=== PATIENT | male | born 1935 | race Caucasian/White ===

== ENCOUNTER 2017-08-22 09:53 | Observation (INO) | payer MEDICARE ==
[2017-08-21 08:51] VITALS: BMI 41.5
[2017-08-22] MEDS ORDERED: Midazolam HCl 2 mg/2 ml Vial ONE (10:36)
[2017-08-22] MEDS ORDERED: Fentanyl 100 MCG/2 ML VIAL ONE ×2 (10:36→14:20)
[2017-08-22] MEDS ORDERED: Succinylcholine Chloride 20 MG/ML 10 ml SYRINGE FS ONE (10:45)
[2017-08-22] MEDS ORDERED: PROPOFOL 200 MG/20 ML VIAL ONE (10:45)
[2017-08-22] MEDS ORDERED: PHENYLEPHRINE-NS 100 MCG/ML 10 ML SYRINGE ONE (10:45)
[2017-08-22] MEDS ORDERED: Glycopyrrolate 0.2 MG/ML 5 ML SYRINGE ONE (10:45)
[2017-08-22] MEDS ORDERED: Bupivacaine HCl 0.5%/Epinephrine 1:200,000/PF 30 ml Vial ONE (10:59)
[2017-08-22 11:19] LABS: Hemoglobin 10.1 g/dL (14.0-18.0); Mean Corpuscular HGB CONC 32.7 g/dL (32.0-36.0); Mean Corpuscular Hemoglobin 30.5 pg (27.0-31.0); Mean Corpuscular Volume 93.1 fl (80.0-94.0); Mean Platelet Volume 7.2 fL (7.4-10.4); Platelet Count 238 thou/uL (130-400); RBC Distribution Width 14.2 % (11.5-14.5); Red Blood Cell (RBC) Count 3.32 mill/uL (4.70-6.10); White Blood Cell (WBC) Count 6.3 thou/uL (4.8-10.8)
[2017-08-22 11:36] LABS: Anion Gap 9 mmol/L (10-20); BUN (Urea Nitrogen) 39 mg/dL (8.4-25.7); Calc. Creatinine Clearance 64 mL/min (70-130); Calcium 8.5 mg/dL (7.8-10.44); Carbon Dioxide 27 mmol/L (23-31); Chloride 106 mmol/L (98-107); Estimated GFR-MDRD 41; Glucose 97 mg/dL (83-110); Potassium 4.4 mmol/L (3.5-5.1); Sodium 138 mmol/L (136-145)
[2017-08-22] MEDS ORDERED: CEFAZOLIN/Water 2 GM/20 ML SYRINGE ONE (11:41)
[2017-08-22] MEDS ORDERED: Nitroglycerin 2% Ointment 1 INCH/1 GM Packet ONE (12:40)
--- NOTE | 2017-08-22 14:34 | RAD ---
RIGHT HUMERUS INTRAOPERATIVE FLUOROSCOPY: Date: 08/22/17 HISTORY: Arm fracture. FINDINGS/IMPRESSION: Intraoperative fluoroscopy is provided for internal fixation as performed by Dr. Singh. Spot fluor oscopic images show long plate transfixing the distal humerus. POS: DULCE
[2017-08-22] MEDS ORDERED: Ondansetron HCl/PF 4 MG/2 ML Vial IV PRN (14:48)
[2017-08-22] MEDS ORDERED: Bisacodyl 10 MG SUPP PR PRN (14:48)
[2017-08-22] MEDS ORDERED: Acetaminophen 325 MG TAB PO PRN (14:48)
[2017-08-22] MEDS ORDERED: HYDROcodone/Acetaminophen 10/325 mg Tablet PO PRN ×2 (14:48)
[2017-08-22] MEDS ORDERED: Morphine 4 MG/ML VIAL SLOW IVP PRN (14:48)
[2017-08-22] MEDS ORDERED: Milk Of Magnesia 30 ML UDCUP PO PRN (14:48)
[2017-08-22] MEDS ORDERED: Promethazine HCl 25 MG/ML VIAL IM PRN (14:48)
[2017-08-22] MEDS ORDERED: traMADol HCl 50 MG TAB PO PRN ×2 (14:48)
[2017-08-22] MEDS ORDERED: Acetaminophen/Codeine 30-300mg Tablet PO PRN ×2 (14:48)
[2017-08-22] MEDS ORDERED: Fentanyl 100 MCG/2 ML VIAL SLOW IVP PRN (14:48)
--- NOTE | 2017-08-22 16:24 | PDOC.FPRHP ---
- History of Present Illness Chief Complaint: fall History of Present Illness: 82 yo M with PMH of HTN, sCHF, A fib presented for ORIF of left distal humerus fracture after falling at home in the shower. Fell on outstretched left hand. Consulted for medical management. - Allergies/Adverse Reactions Allergies Allergy/AdvReac Type Severity Reaction Status Date / Time No Known Drug Allergies Allergy Verified 08/21/17 08:39 - Home Medications Medication Instructions Recorded Confirmed Type Sertraline HCl 50 mg PO HS 10/10/15 08/22/17 History Carvedilol [Coreg] 3.125 mg PO BID 10/13/15 08/22/17 History Amiodarone [Cordarone] 200 mg PO QAM 08/13/17 08/22/17 History Apixaban [Eliquis] 2.5 mg PO BID 08/13/17 08/22/17 History Furosemide [Lasix] 20 mg PO QAM 08/13/17 08/22/17 History Lisinopril [Lisinopril] 2.5 mg PO QAM 08/21/17 08/22/17 History - History PMHx: HTN, A fib, sCHF, cardiomyopathy PSHx: bilateral knee replacement, cardiac ablation, cardiac catheterization ( 2011) FHx: both parents with CAD Social: nonsmoker, no EtOH or drug abuse - Review of Systems General: denies: fever/chills, weight/appetite/sleep changes ENT: denies: nasal congestion Respiratory: denies: cough, congestion, shortness of breath Cardiovascular: denies: chest pain, palpitation, paroxysmal nocturnal dyspnea, orthopnea Gastrointestinal: denies: nausea, vomiting, diarrhea, abdominal pain Genitourinary: denies: incontinence, dysuria Skin: denies: rashes Musculoskeletal: reports: pain, stiffness, swelling Neurological: denies: numbness, syncope Psychological: denies: anxiety, depression - Vital signs BP: [] HR: [] RR: [] Tmax: [] Pox: []% on [] Wt: [] - Physical Exam Constitutional: NAD, awake, alert and oriented, well developed HEENT: normocephalic and atraumatic, PERRLA, EOMI, MMM, oropharynx clear Neck: supple, FROM, no LAD, no JVD, no thyromegaly Chest: no-tender to palpation Heart: RRR, normal S1/S2, no murmurs/rubs/gallops Lungs: CTAB, no respiratory distress Abdomen: soft, non-tender, bowel sounds present Musculoskeletal: normal structure -Musculoskeletal: L arm wrapped, bandages c/d/i Neurological: no focal deficit, CN II-XII intact, normal sensation Skin: no rash/lesions Psychiatric: normal mood and affect, good judgment and insight FMR H&P: Results - Labs Result Diagrams: 08/22/17 11:08 08/22/17 11:08 Lab results: WBC 6.3 thou/uL (4.8-10.8) 08/22/17 11:08 Hgb 10.1 g/dL (14.0-18.0) L 08/22/17 11:08 Hct 30.9 % (42.0-52.0) L 08/22/17 11:08 MCV 93.1 fl (80.0-94.0) 08/22/17 11:08 Plt Count 238 thou/uL (130-400) 08/22/17 11:08 Sodium 138 mmol/L (136-145) 08/22/17 11:08 Potassium 4.4 mmol/L (3.5-5.1) 08/22/17 11:08 Chloride 106 mmol/L (98-107) 08/22/17 11:08 Carbon Dioxide 27 mmol/L (23-31) 08/22/17 11:08 BUN 39 mg/dL (8.4-25.7) H 08/22/17 11:08 Creatinine 1.63 mg/dL (0.6-1.3) H 08/22/17 11:08 Glucose 97 mg/dL (83-110) 08/22/17 11:08 Calcium 8.5 mg/dL (7.8-10.44) 08/22/17 11:08 FMR H&P: A/P - Problem List (1) Humerus distal fracture Current Visit: Yes Status: Acute Code(s): S42.409A - UNSP FRACTURE OF LOWER END OF UNSP HUMERUS, INIT FOR CLOS FX Assessment and Plan: S/p ORIF by Dr. Gandara. Pain well controlled currently. (2) HTN (hypertension) Current Visit: Yes Status: Chronic Code(s): I10 - ESSENTIAL (PRIMARY) HYPERTENSION Qualifiers: Hypertension type: essential hypertension Qualified Code(s): I10 - Essential (primary) hypertension Assessment and Plan: Continue home lisinopril, coreg. (3) Atrial fibrillation Current Visit: No Status: Chronic Code(s): I48.91 - UNSPECIFIED ATRIAL FIBRILLATION Qualifiers: Atrial fibrillation type: paroxysmal Qualified Code(s): I48.0 - Paroxysmal atrial fibrillation Assessment and Plan: Continue amiodarone. Holding eliquis per surgery for now as he is post op. (4) Chronic systolic (congestive) heart failure Current Visit: No Status: Chronic Code(s): I50.22 - CHRONIC SYSTOLIC ( CONGESTIVE) HEART FAILURE Assessment and Plan: Last EF 40-45%. Continue BB, lasix. (5) CAD (coronary artery disease) Current Visit: No Status: Chronic Code(s): I25.10 - ATHSCL HEART DISEASE OF [place] CORONARY ARTERY W/O ANG PCTRS Qualifiers: Coronary Disease-Associated Artery/Lesion type: [place] artery [place] vs. transplanted heart: [place] heart Associated angina: without angina Qualified Code(s): I25.10 - Atherosclerotic heart disease of [place] coronary artery without angina pectoris Assessment and Plan: Continue BB, lisinopril. FMR H&P: Upper Level - Plan Date/Time: 08/22/17 1291 I, [], have evaluated this patient and agree with findings/plan as outlined by internet application developer resident. Pertinent changes/additions are listed here. Attending Addendum - Attending Addendum Date/Time: 08/22/17 3036 I personally evaluated the patient and discussed the management with Dr. Galvan. I agree with the History, Examination, Assessment and Plan documented above with any addition or exceptions noted below. Patient with history of sCHF, HTN, Afib s/p ablation, CAD presenting here after fracture of humerus on 08/21 s/p ORIF by Dr. Gandara. We have been consulted for medical mgmt of his chronic conditions. Will continue all home medications at this time. Monitor BP and escalate therapy as needed. I would think our biggest concern in this patient would be volume overload after surgery in his CHF state. Will monitor closely to prevent and correct any volume overload. There is some mention of AICD event during surgery though that has not been validated. Will obtain AICD interrogation report to confirm and treat appropriately.
[2017-08-22] MEDS: Sodium Chloride 0.9% 100 ML IV SCH ×2 (18:46→18:47)
[2017-08-22] MEDS: CEFAZOLIN/Water 2 GM/20 ML SYRINGE SLOW IVP SCH (20:55)
[2017-08-22] MEDS ORDERED: Aspirin 81 mg Enteric Coated Tablet PO SCH (21:00)
[2017-08-22] MEDS ORDERED: Carvedilol 3.125 MG TAB PO SCH (21:00)
[2017-08-22] MEDS: Sodium Chloride 0.9% 1,000 ML IV SCH (21:13)
[2017-08-23] MEDS: CEFAZOLIN/Water 2 GM/20 ML SYRINGE SLOW IVP SCH (05:38)
[2017-08-23 05:58] LABS: #Eosinphils 0.1 thou/uL (0.0-0.7); #Lymphocytes 1.3 thou/uL (1.20-3.40); #Monocytes 0.8 thou/uL (0.11-0.59); #Neutrophils 5.7 thou/uL (1.40-6.50); %Basophils 0.2 % (0.0-1.0); %Eosinophils 0.7 % (0.0-10.0); %Lymphocytes 16.1 % (21.0-51.0); %Monocytes 10.1 % (0.0-10.0); %Neutrophils 72.9 % (42.0-75.0); Hemoglobin 9.9 g/dL (14.0-18.0); Mean Corpuscular HGB CONC 31.9 g/dL (32.0-36.0); Mean Corpuscular Hemoglobin 30.2 pg (27.0-31.0); Mean Corpuscular Volume 94.6 fl (80.0-94.0); Mean Platelet Volume 7.7 fL (7.4-10.4); Platelet Count 200 thou/uL (130-400); RBC Distribution Width 14.4 % (11.5-14.5); Red Blood Cell (RBC) Count 3.27 mill/uL (4.70-6.10); White Blood Cell (WBC) Count 7.9 thou/uL (4.8-10.8)
--- NOTE | 2017-08-23 06:35 | PDOC.FM ---
- Subjective Subjective: Did well overnight per nursing. Pt states he is still having some pain despite medications prescribed by his surgeon. Afebrile. - Objective MAR Reviewed: Yes Vital Signs & Weight: Vital Signs (12 hours) Temp Pulse Resp BP Pulse Ox 08/22/17 23:14 98.5 F 66 19 109/57 L 92 L 08/22/17 20:48 97.9 F 60 20 121/76 97 08/22/17 20:03 98.5 F 66 19 Weight Weight 131.54 kg I&O: 08/21/17 08/22/17 08/23/17 06:59 06:59 06:59 Intake Total 350 Balance 350 Result Diagrams: 08/23/17 04:41 08/22/17 11:08 Phys Exam - Physical Examination Constitutional: NAD obese HEENT: moist MMs, oral pharynx no lesions Respiratory: no wheezing, no rhonchi Cardiovascular: RRR, no significant murmur Gastrointestinal: soft, non-tender Musculoskeletal: no edema, pulses present LUE in cal wrap and splint Neurological: normal sensation Psychiatric: normal affect, A&O x 3 Dx/Plan (1) Humerus distal fracture Code(s): S42.409A - UNSP FRACTURE OF LOWER END OF UNSP HUMERUS, INIT FOR CLOS FX Status: Acute Plan: Continue to follow. Management per primary team. Pt is under the impression he will be going home today. (2) HTN (hypertension) Code(s): I10 - ESSENTIAL (PRIMARY) HYPERTENSION Status: Chronic Qualifiers: Hypertension type: essential hypertension Qualified Code(s): I10 - Essential (primary) hypertension Plan: Continue home medications. (3) Atrial fibrillation Code(s): I48.91 - UNSPECIFIED ATRIAL FIBRILLATION Status: Chronic Qualifiers: Atrial fibrillation type: paroxysmal Qualified Code(s): I48.0 - Paroxysmal atrial fibrillation Plan: Continue amiodarone. Holding eliquis. (4) Chronic systolic (congestive) heart failure Code(s): I50.22 - CHRONIC SYSTOLIC (CONGESTIVE) HEART FAILURE Status: Chronic (5) CAD (coronary artery disease) Code(s): I25.10 - ATHSCL HEART DISEASE OF [place] CORONARY ARTERY W/O ANG PCTRS Status: Chronic Qualifiers: Coronary Disease-Associated Artery/Lesion type: [place] artery [place] vs. transplanted heart: [place] heart Associated angina: without angina Qualified Code(s): I25.10 - Atherosclerotic heart disease of [place] coronary artery without angina pectoris
[2017-08-23] MEDS: Sodium Chloride 0.9% 1,000 ML IV SCH (07:19)
[2017-08-23 07:25] VITALS: BP 108/67; TEMP 98.3
--- NOTE | 2017-08-23 08:58 | OP ---
DATE OF SURGERY: 08/22/2017 PREOPERATIVE DIAGNOSIS: Left extraarticular distal humeral shaft fracture. POSTOPERATIVE DIAGNOSIS: Left extraarticular distal humeral shaft fracture. SURGICAL PROCEDURE: Open reduction internal fixation, left distal humerus. ANESTHESIA: General. SURGEON: Santiago Singh M.D. ENROLLMENT NURSE: Stanislaw Gonzalez PA-C. IMPLANTS: Synthes 8-hole 3.5 mm posterior lateral plate with small fragment screws. BLOOD LOSS: 250 mL. TOURNIQUET TIME: Zero. SPECIMEN: None. DRAINS: None. INDICATIONS: Mr. Campa is an 82-year-old gentleman, status post ground-level fall approximately two a nd a half weeks ago sustaining a distal humerus fracture. The patient was initially seen in [place] and with plans to proceed with nonsurgical management; however, due to the displacement of the fractu re, it was decided to now proceed with open reduction internal fixation. As such, the patient transf erred from his [facility] for this procedure. Informed consent has been obt ained. I believe all questions answered. PROCEDURE: The patient was brought to the operating room and a timeout performed followed by inducti on of general anesthesia. Next, the patient was positioned in a right lateral decubitus position wit h left arm held over a bolster. A sterile prep and drape was then performed of the left upper extrem ity. A posterior surgical approach to the distal humerus was then performed with triceps splitting. Once the bone was exposed, the callus was removed using a combination of curette, elevator, and violette eur. Once the fracture could be mobilized, it was initially provisionally held in place; however, th ere was found to be very soft bone and the bone tenaculums were causing some cut out of the bone. As such, the reduction was augmented with some K-wires. Once acceptable reduction was achieved, a post erolateral 8-hole plate was applied to the humerus and then 3 cortical screws were placed proximal to the fracture and then a combination of cortical and locking screws were placed distally. AP and lat eral C-arm images showed yarsani of alignment of the humerus with reasonably good cortical apposi tion at the fracture site. As such, the wound was then thoroughly irrigated with bulb syringe and cl osed in layers with a running #1 Vicryl for the triceps, fascia, and tendon followed by 2-0 Vicryl an d then cruzito for the skin. A Xeroform gauze, Webril, and posterior fiberglass splint was applied t o the arm and then patient was transferred to recovery room in stable condition. There were no compl ications. He tolerated the procedure well.
[2017-08-23] MEDS ORDERED: Lisinopril 2.5 MG TAB PO SCH (09:00)
[2017-08-23] MEDS ORDERED: Amiodarone 200 MG TAB PO SCH (09:00)
[2017-08-23] MEDS ORDERED: Furosemide 20 MG TAB PO SCH (09:00)
--- NOTE | 2017-08-25 12:12 | DIS ---
DATE OF ADMISSION: 08/22/2017 DATE OF DISCHARGE: 08/23/2017 PREOPERATIVE DIAGNOSIS: Left extraarticular distal humeral shaft fracture. DISCHARGE DIAGNOSIS: Left extraarticular distal humeral shaft fracture. PROCEDURE: The patient underwent open reduction and internal fixation of left distal humerus. HOSPITAL COURSE: Hospital stay was unremarkable. No postop complications. The patient left the nex t day. DISCHARGE CONDITION: Good/stable. DISPOSITION: Back to swing bed. FOLLOWUP: Follow up would be in 10 to 14 days, sooner if there are problems or concerns. DISCHARGE MEDICATIONS: Given with usage instructions. This is Stanislaw Gonzalez PA-C dictating for Santiago Singh MD
== END 2017-08-23 07:38 | disposition swing bed, planned readmission (89) ==
LOC: SDC 09:53 → SURG A 14:48
PROVIDERS: ADMIT Orthopaedic Surgery; ATTEND Orthopaedic Surgery
PROC: 0PSG04Z Reposition Left Humeral Shaft with Internal Fixation Device, Open Approach (ICD-10-PCS; principal; 2017-08-22)
DX: S42.402A Unspecified fracture of lower end of left humerus, initial encounter for closed fracture (principal); I11.0 Hypertensive heart disease with heart failure; I50.22 Chronic systolic (congestive) heart failure; I48.91 Unspecified atrial fibrillation; I25.10 Atherosclerotic heart disease of native coronary artery without angina pectoris; I42.9 Cardiomyopathy, unspecified; W18.30XA Fall on same level, unspecified, initial encounter; Z88.5 Allergy status to narcotic agent; Z79.01 Long term (current) use of anticoagulants; Z79.899 Other long term (current) drug therapy; Z87.891 Personal history of nicotine dependence; Z95.810 Presence of automatic (implantable) cardiac defibrillator
CPT/HCPCS: 24586; 73060; 76001; 80048; 85025; 85027; 93005; 96374 ×3; 96376; C1713 ×3; G0378; 36415; 93010; J0670; J2250; J2704; J3010